=== PATIENT | male | born 1980 | race Caucasian/White ===

== ENCOUNTER 2019-01-06 19:34 | Emergency (ER) | payer BC ==
--- NOTE | 2019-01-06 20:01 | Emergency Department Record ---
History of Present Illness - General Chief Complaint: Numbness Stated Complaint: LT HAND TINGLING/LT FOOT TINGLING Time Seen by Provider: 01/06/19 19:40 Source: Patient Mode of Arrival: Ambulatory Limitations: No limitations - History of Present Illness Initial Comments: The patient is here due to the acute onset of L arm and hand tingling along with L foot tingling which started about an hour ago. He now states the symptoms are improving. He has had the arm symptoms with intermittent CP for the last 2 weeks. The pain comes and goes and does not seem to be exertional. Tonight the L foot was also involved which was new since the onset over the last 2 weeks. He has had no SOB, sweating, or SONA. He did see his PCP and is set up with a Activity Coordinator at [facility]. Presently he has no CP. Onset/Timin -: Minutes(s) Location: Left arm, Left leg History of same: Yes Place: Home Quality: Intermittent On Anticoagulants: No Associated Symptoms: Chest pain Treatments Prior to Arrival: None - [place] Coma Scale Eye Response: (4) Open spontaneously Motor Response: (6) Obeys commands Verbal Response: (5) Oriented Daniella Total: 15 - Related Data Home Medications: Home Medications Medication Instructions Recorded Confirmed Last Taken Losartan Potassium 50 mg PO DAILY 01/06/19 01/06/19 01/05/19 Omeprazole 40 mg PO DAILY 01/06/19 01/06/19 01/06/19 Allergies/Adverse Reactions: Allergies Allergy/AdvReac Type Severity Reaction Status Date / Time No Known Drug Allergies Allergy Verified 08/01/15 14:04 Travel Screening - Travel/Exposure Within Last 30 Days Have you traveled within the last 30 days?: No - Travel/Exposure Within Last Year Have you traveled outside the [place] in the last year?: No - Additonal Travel Details Have you been exposed to anyone with a communicable illness?: No - Travel Symptoms Symptom Screening: None Review of Systems Constitutional: Denies: Chills, Fever Eyes: Denies: Eye discharge ENT: Denies: Congestion Respiratory: Denies: Cough, Dyspnea Cardiovascular: Reports: Chest pain Endocrine: Denies: Fatigue Gastrointestinal: Denies: Nausea Genitourinary: Denies: Dysuria Musculoskeletal: Denies: Back pain Neurological: Reports: Tingling. Denies: Confusion Past Medical History - SOCIAL HISTORY Smoking Status: Never smoker Alcohol Use: Rare Drug Use: None - RESPIRATORY Hx Respiratory Disorders: No - CARDIOVASCULAR Hx Cardio Disorders: Yes Hx Hypertension: Yes Comment:: high cholestrol - NEURO Hx Neuro Disorders: No - GI Hx GI Disorders: No - Hx Genitourinary Disorders: No - ENDOCRINE Hx Endocrine Disorders: No - MUSCULOSKELETAL Hx Musculoskeletal Disorders: No - PSYCH Hx Psych Problems: No - HEMATOLOGY/ONCOLOGY Hx Hematology/Oncology Disorders: No Family Medical History Any Significant Family History?: No Hx Heart Disease: Grandparents Hx HTN: Father, Mother Physical Exam - General General Appearance: Alert, Oriented x3, Cooperative, No acute distress - Head Head exam: Atraumatic, Normocephalic, Normal inspection - Eye Eye exam: Normal appearance, PERRL, EOMI - ENT Throat exam: Normal inspection. negative: Tonsillar erythema, Tonsillar exudate - Neck Neck exam: Normal inspection, Full ROM. negative: Tenderness - Respiratory Respiratory exam: Normal lung sounds bilaterally. negative: Respiratory distress - Cardiovascular Cardiovascular Exam: Regular rate, Normal rhythm, Normal heart sounds - GI/Abdominal GI/Abdominal exam: Soft, Normal bowel sounds. negative: Tenderness - Extremities Extremities exam: Normal inspection, Full ROM, Normal capillary refill. negative: Tenderness - Neurological Neurological exam: Alert, Motor sensory deficit (There is no weakness on exam but there is very mild subjective decreased sensation to the L foot and arm. The patient states it is much better now. ), Normal gait, Oriented X3, Other (Neg drift and [place]omberg.). negative: Abnormal gait, Altered Course Vital Signs 01/06/19 19:39 Temperature 97.6 F Pulse Rate [ 69 Pulse Ox Probe] Respiratory 18 Rate Blood Pressure 181/120 [Left] Pulse Ox 98 - Reevaluation(s) Reevaluation #1: The patient is doing a lot better at this time. He denies any CP and his L arm and foot tingling has resolved. He is resting comfortably with an improved BP. 01/06/19 20:50 Reevaluation #2: The patient is doing very well at this time. His workup so far has been very normal. I did discuss the need further evaluation including a stress test and Cardiology consultation with the patient and he did agree to the plan. Due to that fact the patient will need to be transferred to [facility] for further evaluation. I did discuss the case with Dr. Ashford who is harvesting contractor for admissions at [facility] and she does accept the patient for transfer. 01/06/19 21:12 Medical Decision Making - Data Complexity MDM Data: Labs Ordered and/or Reviewed, X-Ray Ordered and/or Reviewed, EKG Ordered and/or Reviewed - Lab Data Result diagrams: 01/06/19 19:50 01/06/19 19:50 - EKG Data -: EKG Interpreted by Me EKG: No Acute Changes, Normal EKG - Radiology Data Radiology results: Report reviewed (CXR: Neg Head CT: Neg per Rad.) Disposition Disposition: Transfer Clinical Impression: Chest pain Qualifiers: Chest pain type: unspecified Qualified Code(s): R07.9 - Chest pain, unspecified Disposition: Acute Care Hospital Transfer Transfer To: [facility] Reason For Transfer: Cardiology Accepting Physician: Dejon Time Discussed w/Accepting Physician: 21:18 Condition: (2) Stable Forms: Patient Portal Access Time of Disposition: 21:18 Quality - Quality Measures Quality Measures: N/A - Blood Pressure Screening View Details: Yes Does Patient Have Any of the Following: Active Dx of HTN Blood Pressure Classification: Hypertensive Reading Systolic Measurement: 153 Diastolic Measurement: 98 Screening for High Blood Pressure: Patient Exclusion, Hx of HTN [[id number]]
[2019-01-06 20:12] LABS: ABSOLUTE NEUTROPHIL COUNT 7.17; BASO % 0.2 % (0-6); EOS % 0.6 % (0-6); GRAN % 60.6 % (47-80); HEMATOCRIT 46.7 % (42.0-52.0); HEMOGLOBIN 15.9 gm/dl (14.0-18.0); LYMPH % 32.6 % (16-45); MEAN CELL VOLUME 87.6 fl (81-97); MEAN CORPUSCULAR HEMOGLOBIN 29.8 pg (27-33); MEAN PLATELET VOLUME 10.7 fl (7.4-10.4); PLATELET COUNT 223 K/uL (130-400); RED BLOOD COUNT 5.33 M/uL (4.40-5.70); RED CELL DISTRIBUTION WIDTH 12.4 % (11.5-14.5); WHITE BLOOD COUNT W/O DIFF 11.8 K/uL (4.2-12.2)
[2019-01-06 20:24] LABS: PARTIAL THROMBOPLASTIN TIME 23.3 SECONDS (24.5-39.1); PROTHROMBIN TIME (PATIENT) 10.3 SECONDS (9.5-12.1)
[2019-01-06 20:25] LABS: BLOOD UREA NITROGEN 18 mg/dL (6-20); CREATININE 1.1 mg/dL (0.7-1.2); EST GLOMERULAR FILTRATION RATE > 60 mL/min
[2019-01-06 20:27] LABS: GLUCOSE,RANDOM 103 mg/dL (74-109)
[2019-01-06 20:30] LABS: CREATINE PHOSPHOKINASE 167 U/L (39-308)
[2019-01-06] MEDS ORDERED: ACETAMINOPHEN 325 MG TAB PO ONE (20:48)
[2019-01-06] MEDS ORDERED: ASPIRIN 325 MG TABLET PO ONE (21:10)
--- NOTE | 2019-01-07 11:16 | RADIOLOGY REPORT ---
EXAM: CHEST, TWO VIEWS HISTORY: SUDDEN ONSET, FLUSHED, NUMBNESS AND TINGLING DOWN HIS LEFT ARM. TECHNIQUE: Frontal and lateral views of the chest were obtained. Comparison: 08/01/15. FINDINGS: The cardiomediastinal silhouette is normal in size. The pulmonary vasculature is not congested. No focal consolidation, pleural effusion or pneumothorax is seen. IMPRESSION: NO ACUTE CARDIOPULMONARY PROCESS. JOB NUMBER: [id number] MTDD
--- NOTE | 2019-01-07 11:19 | CT SCAN REPORT ---
EXAM: CT OF THE HEAD WITHOUT CONTRAST HISTORY: HEADACHE WITH LEFT SIDED PARESTHESIAS. TECHNIQUE: Standard CT imaging of the head without intravenous contrast was obtained. Comparison: None. FINDINGS: The ventricles, sulci, and basal cisterns are normal. No intracranial hemorrhage or extraaxial fluid collection is identified. No significant mass effect or midline shift. No evidence for acute ischemia. The visualized paranasal sinuses and mastoid air cells are clear. IMPRESSION: NEGATIVE NONCONTRAST CT OF THE HEAD. JOB NUMBER: [id number] [facility]
== END 2019-01-06 22:21 | disposition short-term general hospital (02) ==
LOC: ER 19:34
DX: R07.9 Chest pain, unspecified (principal); R20.2 Paresthesia of skin; R51 Headache; I10 Essential (primary) hypertension
CPT/HCPCS: 70450; 71046; 80048; 82550; 82553; 84484; 85025; 85610; 85730; 99285